=== PATIENT | male | born 1995 | race Caucasian/White ===

== ENCOUNTER 2016-11-07 11:49 | Emergency (ER) | payer SELFPAY ==
[~2016-11-07] VITALS: Ht 162.6 cm; Wt 61.2 kg
[2016-11-07] MEDS ORDERED: ONDANSETRON 4 MG ODT TAB PO ONE (12:00)
[2016-11-07] MEDS ORDERED: IBUPROFEN 600 MG TABLET PO ONE (12:00)
[2016-11-07 12:03] VITALS: BP_SYST 94
[2016-11-07 12:20] VITALS: BP_SYST 137
== END 2016-11-07 12:20 ==
LOC: SED 11:49
DX: F11.23 Opioid dependence with withdrawal (principal)
CPT/HCPCS: 99283; Q0162